=== PATIENT | male | born 1985 | race Asian ===

== ENCOUNTER 2017-03-29 20:11 | Emergency (ER) | payer OTHER ==
[~2017-03-29] VITALS: Ht 162.6 cm; Wt 68.0 kg
[2017-03-29 20:49] VITALS: Ht 162.6 cm; Wt 68.0 kg
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
== END 2017-03-29 20:55 | disposition home or self-care (01) ==
LOC: E/R 20:11
DX: Z77.21 Contact with and (suspected) exposure to potentially hazardous body fluids (principal)
CPT/HCPCS: 99282